=== PATIENT | male | born 1945 | race Caucasian/White ===

== ENCOUNTER 2023-06-21 19:35 | Inpatient (IN) | payer OTHER, MEDICARE, SELFPAY ==
[2023-06-21 21:47] VITALS: BMI 24.0
[2023-06-21 23:26] VITALS: BP 141/70; PULSE 101; RESP 17; TEMP 36.3; O2SAT 99
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
[2023-06-22 06:00] VITALS: BP 99/68; PULSE 95; RESP 18; TEMP 36.6; O2SAT 97
[2023-06-22 07:00] VITALS: BMI 24.3
[2023-06-22] MEDS: Atorvastatin Calcium 40 MG TABLET PO (08:50)
[2023-06-22] MEDS: Lidocaine 4 % Patch ADH..PATCH 1 PATCH TRANSDERMA (08:50)
[2023-06-22] MEDS: Apixaban 5 MG TABLET PO (08:50)
[2023-06-22] MEDS: amLODIPine Besylate 5 MG TABLET PO (08:50)
[2023-06-22] MEDS: lisinopriL 5 MG TABLET PO (08:51)
[2023-06-22] MEDS: Metoprolol Succinate ER 50 MG TAB.ER.24H PO (08:51)
[2023-06-22 08:52] LABS: Estimated Average Glucose 108 mg/dL; Hemoglobin A1c % 5.4 % (<6.0)
[2023-06-22 09:00] LABS: Alanine Aminotransferase 54 U/L (0-40); Albumin Level 3.8 g/dL (3.5-5.0); Alkaline Phosphatase 49 U/L (39-117); Anion Gap 15 (12-20); Aspartate Amino Transferase 69 U/L (5-37); Bilirubin Total 2.3 mg/dL (0.0-1.0); Blood Urea Nitrogen 21 mg/dL (9-16); Calcium 10.1 mg/dL (8.4-10.2); Carbon Dioxide 25 mmol/L (22-29); Chloride 105 mmol/L (96-108); Cholesterol 114 mg/dL (<200); Creatinine Clr Calc Pharmacy 70.1; Estimated Glomerular Filt Rate > 60; Glucose Fasting 92 mg/dL (60-99); HDL Cholesterol 36 mg/dL (>40); LDL Cholesterol Calculated 60 mg/dL (<100); Potassium 3.8 mmol/L (3.3-5.1); Sodium 141 mmol/L (135-145); Total Protein 6.7 g/dL (6.5-8.0); Triglycerides 94 mg/dL (<150)
[2023-06-22 09:05] LABS: TSH reflex Free T4 1.32 uIU/mL (0.32-4.0)
[2023-06-22 09:18] LABS: Folate 12.5 ng/mL (> or = 4.0); Vitamin B12 526 pg/mL (200-900)
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
[2023-06-22 18:00] VITALS: BP 124/59; PULSE 76; TEMP 35.8; O2SAT 96
[2023-06-23 07:45] VITALS: BP 125/67; PULSE 83; RESP 18; TEMP 36.6; O2SAT 97
[2023-06-23] MEDS: amLODIPine Besylate 5 MG TABLET PO (08:20)
[2023-06-23] MEDS: Apixaban 5 MG TABLET PO (08:21)
[2023-06-23] MEDS: lisinopriL 5 MG TABLET PO (08:21)
[2023-06-23] MEDS: Atorvastatin Calcium 40 MG TABLET PO (08:21)
[2023-06-23] MEDS: Metoprolol Succinate ER 50 MG TAB.ER.24H PO (08:29)
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
--- NOTE | 2023-06-23 16:59 | PC.NURSE ---
Sandro has a large abrasion on middle back with smaller open areas producing clear, thin liquid. No odor. Area looks pink, clean, no s/s of infection noted. Dr Earl notified, came in and assessed the abrasion. ordered Telfa dressing to open areas.
[2023-06-23 18:00] VITALS: BP 118/75; PULSE 82; TEMP 36.3; O2SAT 97
[2023-06-24 09:07] VITALS: BP 129/60; PULSE 94; RESP 18; TEMP 36.2; O2SAT 98
[2023-06-24] MEDS: Atorvastatin Calcium 40 MG TABLET PO (09:10)
[2023-06-24] MEDS: lisinopriL 5 MG TABLET PO (09:10)
[2023-06-24] MEDS: Apixaban 5 MG TABLET PO ×2 (09:10→20:21)
[2023-06-24] MEDS: amLODIPine Besylate 5 MG TABLET PO (09:11)
[2023-06-24] MEDS: Metoprolol Succinate ER 50 MG TAB.ER.24H PO (09:11)
--- NOTE | 2023-06-24 14:27 | PC.NURSE ---
Patient had a shower today. The Telfa dressing were removed from his back. Area washed with soap and water and dried. The abrasion is healing with pink and red granulated wound bed with moderate amount of non-odorous yellow drainage on the old dressing. There is also a large old fading bruised area right mid back and flank area. Patient denies pain and tolerated procedure well.
--- NOTE | 2023-06-24 16:45 | HO.PSYCHPN ---
Subjective Subjective Date of Service: 06/24/23 Reason For Visit: F43.10 Post traumatic STress Disorder Interim History: Met with patient; discussed with team Patient reports that he is good and has brighter affect and seems more present during conversation. Patient said he had a good meeting with his daughter today. Mortgage Loan Closer discussed police report that found patient with gun and hand, where no pants; patient says he does not remember this at all but today, accepts that this may have actually happen. Mortgage Loan Closer discussed and suggests that his concern about a smear campaign might just be his mind playing tricks on him which he said he would consider. Discussed medication that could have been problematic, Ambien and NyQuil a which patient says he is done taking. Sleeping well. Staff report patient has lesion on back is healing well. Mental Status Exam Mental Status Exam Narrative: Pt is alert and oriented to self, place; behavior is cooperative, friendly and calm; patient is not in distress; dressed in casual attire, adequate grooming and hygiene; mood is described as good and affect congruent; eye contact appropriate; Speech is normal rate, volume and prosody and not pressured; no psychomotor agitation/retardation present; thought process goal oriented and linear; note tangential moments; Thought content is on discharge; considering this past weeks incident; remains pertinent to discussion and answers are relevant; some residual paranoid/delusional thinking; denies any SI/HI. There is no evidence of perceptual disturbance; denies AVH Patients insight and judgment impaired but seems to be improving Diagnostics Vital Signs (24Hr): Vital Signs - 24 hr 06/23/23 18:00 06/24/23 09:07 Temperature 97.3 F 97.2 F Pulse Rate 82 94 Respiratory Rate 18 Blood Pressure 118/75 129/60 Pulse Oximetry 97 98 Oxygen Delivery Method Room Air Room Air BMI result Body Mass Index 24.3 Labs 06/22/23 07:56 Medications Medications Current Medications Acetaminophen (Acetaminophen 325 Mg Tablet) 650 mg PO Q6H PRN PRN Reason: Headache/Pain Mild Scale (1-3) Hydrocodone Bitart/Acetaminophen (Hydrocodone Bit/Acetam 5/325 Tablet) 1 tab PO Q6H PRN PRN Reason: Pain (Scale Score 7-10) Al Hydroxide/Mg Hydroxide (Magnesium Hydrox/Alum Hydrox 30 Ml Oral.Susp) 30 ml PO Q6H PRN PRN Reason: Heartburn/Nausea Amlodipine Besylate (Amlodipine Besylate 5 Mg Tablet) 5 mg PO DAILY [facility]; Protocol Last Admin: 06/24/23 09:11 Dose: 5 mg Apixaban (Apixaban 5 Mg Tablet) 5 mg PO BID [facility] Last Admin: 06/24/23 09:10 Dose: 5 mg Atorvastatin Calcium (Atorvastatin Calcium 40 Mg Tablet) 40 mg PO DAILY [facility] Last Admin: 06/24/23 09:10 Dose: 40 mg Lidocaine (Lidocaine 4 % Patch Adh..Patch) 1 patch TRANSDERMA DAILY [facility] Last Admin: 06/24/23 09:10 Dose: Not Given Lisinopril (Lisinopril 5 Mg Tablet) 5 mg PO DAILY [facility]; Protocol Last Admin: 06/24/23 09:10 Dose: 5 mg Magnesium Hydroxide (Milk Of Magnesia 30 Ml Oral.Susp) 30 ml PO DAILY PRN PRN Reason: Constipation Metoprolol Succinate (Metoprolol Succinate Er 50 Mg Tab.Er.24h) 50 mg PO DAILY [facility]; Protocol Last Admin: 06/24/23 09:11 Dose: 50 mg Trazodone HCl (Trazodone Hcl 50 Mg Tablet) 50 mg PO BEDTIME MRX1 PRN PRN Reason: Insomnia Allergies Allergies Allergy/AdvReac Type Severity Reaction Status Date / Time No Known Allergies Allergy Verified 06/21/23 23:40 Assessment & Plan Assessment & Plan (1) Delirium: Status: Acute Code(s): R41.0 - Disorientation, unspecified (2) PTSD (post-traumatic stress disorder): Status: Acute Code(s): F43.10 - Post-traumatic stress disorder, unspecified (3) Atrial fibrillation: Status: Acute Code(s): I48.91 - Unspecified atrial fibrillation (4) Hypertension: Status: Acute Code(s): I10 - Essential (primary) hypertension Plan Pt is a 78 yo male, [place] with hx of PTSD, ?Afib on Eliquis, HTN, who presents for new onset dysregulated, confused behavior and paranoid delusions. Impression/Plan -per daughters, they have noticed some mild memory issues coming up, however they both say patient has until now been able to fully take care of himself on his own without issue.? Both daughters find this past weekends incident to be startling, and completely out of the ordinary. -patient has been taking Ambien up to 15 mg at night, plus NyQuil plus hydrocodone; at this point it seems possible that patient's PTSD was exacerbated due to mind altering medication and that he is experiencing some delirium from this medication combination.? At this point it is not clear if there is an underlying cognitive decline, or if so to what degree.? Patient has no recollection of a number of events, including being found with his gun outside not wearing pants.? Patient is also expressing paranoid delusional thinking. -admitted for patient's safety, monitoring and assessing whether recent incident due to delirium or whether an organic cognitive impairment is emerging Hospital course: 06/23 no change in presentation; scrape on patient's back which he says was due to accidentally sliding up against a board; examined and no signs of infection -would consider prazosin q.h.s. if patient complains of nightmares or trouble sleeping 06/24 Patient reports that he is good and has brighter affect and seems more present during conversation. Patient said he had a good meeting with his daughter today. Mortgage Loan Closer discussed police report that found patient with gun and hand, where no pants; patient says he does not remember this at all but today, accepts that this may have actually happen. Mortgage Loan Closer discussed and suggests that his concern about a smear campaign might just be his mind playing tricks on him which he said he would consider. Discussed medication that could have been problematic, Ambien and NyQuil a which patient says he is done taking. Sleeping well. Eating well. Will continue to monitor for continued progress Staff report patient has lesion on back is healing well. PLAN: CV Q 15 minute checks Discontinue Ambien Will avoid anticholinergic medications MOCA/ACL for cognitive screening Will give some time to see if there is further cognitive clearing before considering medications Reviewed labs from sending hospital and mild LFT increase likely due to over using NyQuil Reviewed labs from [facility] other AST elevation, lytes, BUN/creatinine, CBC. Ca all WNL; UDS negative; UA negative Persistent AFib Continue metoprolol, Eliquis HTN Continue amlodipine, lisinopril HLD Continue statin Patient educated on: diagnosis and medication risk/benefits Informed Consent: understands Reason for continued inpatient stay Substantial Risk for: rapid decompensation Time Spent With Patient Time: Total time managing care of this patient today ____ minutes.
[2023-06-24 18:00] VITALS: BP 99/75; PULSE 70; RESP 17; TEMP 35.8; O2SAT 99
[2023-06-25 08:45] VITALS: BP 125/84; PULSE 92; RESP 20; TEMP 36.1; O2SAT 98
[2023-06-25] MEDS: lisinopriL 5 MG TABLET PO (08:46)
[2023-06-25] MEDS: Atorvastatin Calcium 40 MG TABLET PO (08:46)
[2023-06-25] MEDS: amLODIPine Besylate 5 MG TABLET PO (08:47)
[2023-06-25] MEDS: Metoprolol Succinate ER 50 MG TAB.ER.24H PO (08:47)
[2023-06-25] MEDS: Apixaban 5 MG TABLET PO ×2 (08:47→20:34)
--- NOTE | 2023-06-25 10:17 | HO.PSYCHPN ---
Subjective Subjective Date of Service: 06/25/23 Reason For Visit: F43.10 Post traumatic STress Disorder Subjective Notes: 3 Day Interim History: Met with patient; discussed with team Patient says that he is good. Reviewed again incident this past weekend patient again says he does not remember having done those things but accepts that it may have happened. He reiterates that he gave his guns to the service or work dispatcher chief which is true. Still hesitant to discard concerned that perhaps his friend was doing some smear campaign. Patient discussed about discharge. Prize Fighter courage him to place a 3 day notice which he did. Patient asked about blood thinning medication and film writer discussed that he has AFib and that this is recommended to take to avoid blood clots, stroke. Patient said he will continue taking it Mental Status Exam Mental Status Exam Narrative: Pt is alert and oriented to self, place; behavior is cooperative, friendly and calm; patient is not in distress; dressed in casual attire, adequate grooming and hygiene; mood is described as good and affect congruent; eye contact appropriate; Speech is normal rate, volume and prosody and not pressured; no psychomotor agitation/retardation present; thought process goal oriented and linear; no tangential moments; Thought content is on discharge; considering this past weeks incident and discharge; remains pertinent to discussion and answers are relevant; some residual paranoid/delusional thinking; denies any SI/HI. There is no evidence of perceptual disturbance; denies AVH Patients insight and judgment impaired but seems to be improving Diagnostics Vital Signs (24Hr): Vital Signs - 24 hr 06/24/23 18:00 Temperature 96.4 F L Pulse Rate 70 Respiratory Rate 17 Blood Pressure 99/75 Pulse Oximetry 99 Oxygen Delivery Method Room Air BMI result Body Mass Index 24.3 Labs 06/22/23 07:56 Medications Medications Current Medications Acetaminophen (Acetaminophen 325 Mg Tablet) 650 mg PO Q6H PRN PRN Reason: Headache/Pain Mild Scale (1-3) Hydrocodone Bitart/Acetaminophen (Hydrocodone Bit/Acetam 5/325 Tablet) 1 tab PO Q6H PRN PRN Reason: Pain (Scale Score 7-10) Al Hydroxide/Mg Hydroxide (Magnesium Hydrox/Alum Hydrox 30 Ml Oral.Susp) 30 ml PO Q6H PRN PRN Reason: Heartburn/Nausea Amlodipine Besylate (Amlodipine Besylate 5 Mg Tablet) 5 mg PO DAILY [facility]; Protocol Last Admin: 06/25/23 08:47 Dose: 5 mg Apixaban (Apixaban 5 Mg Tablet) 5 mg PO BID [facility] Last Admin: 06/25/23 08:47 Dose: 5 mg Atorvastatin Calcium (Atorvastatin Calcium 40 Mg Tablet) 40 mg PO DAILY [facility] Last Admin: 06/25/23 08:46 Dose: 40 mg Lidocaine (Lidocaine 4 % Patch Adh..Patch) 1 patch TRANSDERMA DAILY [facility] Last Admin: 06/25/23 08:48 Dose: Not Given Lisinopril (Lisinopril 5 Mg Tablet) 5 mg PO DAILY [facility]; Protocol Last Admin: 06/25/23 08:46 Dose: 5 mg Magnesium Hydroxide (Milk Of Magnesia 30 Ml Oral.Susp) 30 ml PO DAILY PRN PRN Reason: Constipation Metoprolol Succinate (Metoprolol Succinate Er 50 Mg Tab.Er.24h) 50 mg PO DAILY [facility]; Protocol Last Admin: 06/25/23 08:47 Dose: 50 mg Trazodone HCl (Trazodone Hcl 50 Mg Tablet) 50 mg PO BEDTIME MRX1 PRN PRN Reason: Insomnia Allergies Allergies Allergy/AdvReac Type Severity Reaction Status Date / Time No Known Allergies Allergy Verified 06/21/23 23:40 Assessment & Plan Assessment & Plan (1) Delirium: Status: Acute Code(s): R41.0 - Disorientation, unspecified (2) PTSD (post-traumatic stress disorder): Status: Acute Code(s): F43.10 - Post-traumatic stress disorder, unspecified (3) Atrial fibrillation: Status: Acute Code(s): I48.91 - Unspecified atrial fibrillation (4) Hypertension: Status: Acute Code(s): I10 - Essential (primary) hypertension Plan Pt is a 78 yo male, [place] with hx of PTSD, ?Afib on Eliquis, HTN, who presents for new onset dysregulated, confused behavior and paranoid delusions. Impression/Plan -per daughters, they have noticed some mild memory issues coming up, however they both say patient has until now been able to fully take care of himself on his own without issue.? Both daughters find this past weekends incident to be startling, and completely out of the ordinary. -patient has been taking Ambien up to 15 mg at night, plus NyQuil plus hydrocodone; at this point it seems possible that patient's PTSD was exacerbated due to mind altering medication and that he is experiencing some delirium from this medication combination.? At this point it is not clear if there is an underlying cognitive decline, or if so to what degree.? Patient has no recollection of a number of events, including being found with his gun outside not wearing pants.? Patient is also expressing paranoid delusional thinking. -admitted for patient's safety, monitoring and assessing whether recent incident due to delirium or whether an organic cognitive impairment is emerging Hospital course: 06/23 no change in presentation; scrape on patient's back which he says was due to accidentally sliding up against a board; examined and no signs of infection -would consider prazosin q.h.s. if patient complains of nightmares or trouble sleeping 06/24 Patient reports that he is good and has brighter affect and seems more present during conversation. Patient said he had a good meeting with his daughter today. Prize Fighter discussed police report that found patient with gun and hand, where no pants; patient says he does not remember this at all but today, accepts that this may have actually happen. Prize Fighter discussed and suggests that his concern about a smear campaign might just be his mind playing tricks on him which he said he would consider. Discussed medication that could have been problematic, Ambien and NyQuil a which patient says he is done taking. Sleeping well. Eating well. Will continue to monitor for continued progress Staff report patient has lesion on back is healing well. 06/25 patient much more clear and organized. Seems to be accepting that though he does not remember what happened this past weekend, police and corroborating reports are accurate. Some residual paranoid thinking but not expressed an less solicited. Patient's thought process is goal oriented and linear and no tangential moments. Will continue to monitor but it is hopeful that last week's event was due to delirium caused by mind altering medications (Ambien, NyQuil and hydrocodone) which now seems to be resolving. Daughter thinks patient can go home soon PLAN: 3 day Q 15 minute checks Discontinue Ambien (was intermittently taking up to 15 mg at home) Will avoid anticholinergic medications MOCA/ACL for cognitive screening Will give some time to see if there is further cognitive clearing before considering medications Reviewed labs from sending hospital and mild LFT increase likely due to over using NyQuil Reviewed labs from [facility] hospital other AST elevation, lytes, BUN/creatinine, CBC. Ca all WNL; UDS negative; UA negative Persistent AFib Continue metoprolol, Eliquis HTN Continue amlodipine, lisinopril HLD Continue statin Patient educated on: diagnosis, medication risk/benefits and medical condition Informed Consent: understands and further education needed Reason for continued inpatient stay Substantial Risk for: med/psych decompensation Time Spent With Patient Time: Total time managing care of this patient today ____ minutes.
--- NOTE | 2023-06-25 15:52 | PC.NURSE ---
Submitted 3 day notice; Dr Earl aware. Message left on philip treatment/direct care team [employer] system.
[2023-06-25 18:00] VITALS: BP 92/62; PULSE 72; RESP 16; TEMP 36.6; O2SAT 99
[2023-06-26 08:40] VITALS: BP 104/61; PULSE 85; RESP 20; TEMP 36.6; O2SAT 98
[2023-06-26] MEDS: amLODIPine Besylate 5 MG TABLET PO (08:44)
[2023-06-26] MEDS: Metoprolol Succinate ER 50 MG TAB.ER.24H PO (08:45)
[2023-06-26] MEDS: Apixaban 5 MG TABLET PO ×2 (08:45→20:01)
[2023-06-26] MEDS: Atorvastatin Calcium 40 MG TABLET PO (08:45)
[2023-06-26] MEDS: lisinopriL 5 MG TABLET PO (08:45)
--- NOTE | 2023-06-26 10:34 | HO.PSYCHPN ---
Subjective Subjective Date of Service: 06/26/23 Reason For Visit: F43.10 Post traumatic STress Disorder Interim History: Met with Patient; discussed with team no change in presentation. agrees to remain for family meeting this week w/ daughter scored 18/30 on MOCA ACL ~4 Mental Status Exam Mental Status Exam Narrative: Pt is alert and oriented to self, place; behavior is cooperative, friendly and calm; patient is not in distress; dressed in casual attire, adequate grooming and hygiene; mood is described as good and affect congruent; eye contact appropriate; Speech is normal rate, volume and prosody and not pressured; no psychomotor agitation/retardation present; thought process goal oriented and linear; no tangential moments; Thought content is on discharge; considering this past weeks incident and discharge; remains pertinent to discussion and answers are relevant; some residual paranoid/delusional thinking; denies any SI/HI. There is no evidence of perceptual disturbance; denies AVH Patients insight and judgment impaired but significantly improved Diagnostics Vital Signs (24Hr): Vital Signs - 24 hr 06/25/23 18:00 06/26/23 08:40 Temperature 97.8 F 97.9 F Pulse Rate 72 85 Respiratory Rate 16 20 Blood Pressure 92/62 104/61 Pulse Oximetry 99 98 Oxygen Delivery Method Room Air Room Air BMI result Body Mass Index 24.3 Labs 06/22/23 07:56 Medications Medications Current Medications Acetaminophen (Acetaminophen 325 Mg Tablet) 650 mg PO Q6H PRN PRN Reason: Headache/Pain Mild Scale (1-3) Hydrocodone Bitart/Acetaminophen (Hydrocodone Bit/Acetam 5/325 Tablet) 1 tab PO Q6H PRN PRN Reason: Pain (Scale Score 7-10) Al Hydroxide/Mg Hydroxide (Magnesium Hydrox/Alum Hydrox 30 Ml Oral.Susp) 30 ml PO Q6H PRN PRN Reason: Heartburn/Nausea Amlodipine Besylate (Amlodipine Besylate 5 Mg Tablet) 5 mg PO DAILY [facility]; Protocol Last Admin: 06/26/23 08:44 Dose: 5 mg Apixaban (Apixaban 5 Mg Tablet) 5 mg PO BID [facility] Last Admin: 06/26/23 08:45 Dose: 5 mg Atorvastatin Calcium (Atorvastatin Calcium 40 Mg Tablet) 40 mg PO DAILY [facility] Last Admin: 06/26/23 08:45 Dose: 40 mg Lidocaine (Lidocaine 4 % Patch Adh..Patch) 1 patch TRANSDERMA DAILY [facility] Last Admin: 06/26/23 08:44 Dose: Not Given Lisinopril (Lisinopril 5 Mg Tablet) 5 mg PO DAILY [facility]; Protocol Last Admin: 06/26/23 08:45 Dose: 5 mg Magnesium Hydroxide (Milk Of Magnesia 30 Ml Oral.Susp) 30 ml PO DAILY PRN PRN Reason: Constipation Metoprolol Succinate (Metoprolol Succinate Er 50 Mg Tab.Er.24h) 50 mg PO DAILY [facility]; Protocol Last Admin: 06/26/23 08:45 Dose: 50 mg Trazodone HCl (Trazodone Hcl 50 Mg Tablet) 50 mg PO BEDTIME MRX1 PRN PRN Reason: Insomnia Allergies Allergies Allergy/AdvReac Type Severity Reaction Status Date / Time No Known Allergies Allergy Verified 06/21/23 23:40 Assessment & Plan Assessment & Plan (1) Delirium: Status: Resolved Code(s): R41.0 - Disorientation, unspecified Assessment and Plan: resolved (2) PTSD (post-traumatic stress disorder): Status: Acute Code(s): F43.10 - Post-traumatic stress disorder, unspecified (3) Atrial fibrillation: Status: Acute Code(s): I48.91 - Unspecified atrial fibrillation (4) Hypertension: Status: Acute Code(s): I10 - Essential (primary) hypertension Plan Pt is a 78 yo male, [place] with hx of PTSD, ?Afib on Eliquis, HTN, who presents for new onset dysregulated, confused behavior and paranoid delusions. Impression/Plan -per daughters, they have noticed some mild memory issues coming up, however they both say patient has until now been able to fully take care of himself on his own without issue.? Both daughters find this past weekends incident to be startling, and completely out of the ordinary. -patient has been taking Ambien up to 15 mg at night, plus NyQuil plus hydrocodone; at this point it seems possible that patient's PTSD was exacerbated due to mind altering medication and that he is experiencing some delirium from this medication combination.? At this point it is not clear if there is an underlying cognitive decline, or if so to what degree.? Patient has no recollection of a number of events, including being found with his gun outside not wearing pants.? Patient is also expressing paranoid delusional thinking. -admitted for patient's safety, monitoring and assessing whether recent incident due to delirium or whether an organic cognitive impairment is emerging Hospital course: 06/23 no change in presentation; scrape on patient's back which he says was due to accidentally sliding up against a board; examined and no signs of infection -would consider prazosin q.h.s. if patient complains of nightmares or trouble sleeping 06/24 Patient reports that he is good and has brighter affect and seems more present during conversation. Patient said he had a good meeting with his daughter today. Trout Farmer discussed police report that found patient with gun and hand, where no pants; patient says he does not remember this at all but today, accepts that this may have actually happen. Trout Farmer discussed and suggests that his concern about a smear campaign might just be his mind playing tricks on him which he said he would consider. Discussed medication that could have been problematic, Ambien and NyQuil a which patient says he is done taking. Sleeping well. Eating well. Will continue to monitor for continued progress Staff report patient has lesion on back is healing well. 06/25 patient much more clear and organized. Seems to be accepting that though he does not remember what happened this past weekend, police and corroborating reports are accurate. Some residual paranoid thinking but not expressed an less solicited. Patient's thought process is goal oriented and linear and no tangential moments. Will continue to monitor but it is hopeful that last week's event was due to delirium caused by mind altering medications (Ambien, NyQuil and hydrocodone) which now seems to be resolving. Daughter thinks patient can go home soon 06/26 pt remains doing better; delirium seems to have resolved and pt is much clearer and more organized. However, now cleared, a baseline level of dementia seems to have emerged. -primary team to discuss med management going forward PLAN: 3 day Q 15 minute checks Discontinue Ambien (was intermittently taking up to 15 mg at home) Will avoid anticholinergic medications MOCA/ACL for cognitive screening Reviewed labs from sending hospital and mild LFT increase likely due to over using NyQuil Reviewed labs from setting hospital other AST elevation, lytes, BUN/creatinine, CBC. Ca all WNL; UDS negative; UA negative Persistent AFib Continue metoprolol, Eliquis HTN Continue amlodipine, lisinopril HLD Continue statin Patient educated on: diagnosis and medication risk/benefits Informed Consent: understands and further education needed Reason for continued inpatient stay Substantial Risk for: med/psych decompensation Time Spent With Patient Time: Total time managing care of this patient today ____ minutes.
[2023-06-26] MEDS: Lidocaine 4 % Patch ADH..PATCH 1 PATCH TRANSDERMA (12:38)
[2023-06-26 18:00] VITALS: BP 104/64; PULSE 72; RESP 18; TEMP 36.5; O2SAT 97
[2023-06-27 08:10] VITALS: BP 131/61; PULSE 78; RESP 18; TEMP 36; O2SAT 99
[2023-06-27] MEDS: Atorvastatin Calcium 40 MG TABLET PO (08:31)
[2023-06-27] MEDS: amLODIPine Besylate 5 MG TABLET PO (08:32)
[2023-06-27] MEDS: Apixaban 5 MG TABLET PO ×2 (08:32→20:20)
[2023-06-27] MEDS: Metoprolol Succinate ER 50 MG TAB.ER.24H PO (08:32)
[2023-06-27] MEDS: lisinopriL 5 MG TABLET PO (08:33)
[2023-06-27] MEDS: Lidocaine 4 % Patch ADH..PATCH 1 PATCH TRANSDERMA (08:33)
--- NOTE | 2023-06-27 13:01 | PC.NURSE ---
Large abrasion mid back healing with dark pink granulated tissue in the wound bed. No drainage at this time. Old dry serous drainage on outer edge of wound bed. Left open to air. No signs or symptoms of complications.
--- NOTE | 2023-06-27 16:16 | P.PNPSI_ITS ---
Subjective Subjective Date of Service: 06/27/23 Reason For Visit: F43.10 Post traumatic STress Disorder Subjective Notes: Conditional Voluntary Interim History: The nursing staff reported the patient had been compliant with treatment. Apparently he was delirious with a combination of Ambien, NyQuil and oxycodone. Also he was confused but currently he feels much better. The social work coordinator reported her daughter is involved and she is trying to do a family meeting for tomorrow 330. The occupational therapist did a [place] testing he scored 18/30 on his Chepe test is 4.2. On interview the patient denies new symptoms he states that he feels much better and the staff had noticed that he is less paranoid, apparently he has delirium has resolved. Mental Status Exam Mental Status Exam Patient Appearance: Well Grooomed and Appropriate Patient Orientation: Person and Situation Level of Consciousness: Awake and Appropriate Patient Behavior: Guarded and Passive Mood Description: Withdrawn Affect Description: Constricted Patient Cognition Impaired: Yes Ability to Follow Directions: Good Speech Pattern: Clear Hallucinations: None Delusions: Not Present Thought Process: Distracted and Linear Thought Content: positive for [place] and positive for Poverty of Content Judgement: Fair Diagnostics Vital Signs (24Hr): Vital Signs - 24 hr 06/26/23 18:00 06/27/23 08:10 Temperature 97.7 F 96.8 F Pulse Rate 72 78 Respiratory Rate 18 18 Blood Pressure 104/64 131/61 Pulse Oximetry 97 99 Oxygen Delivery Method Room Air Room Air BMI result Body Mass Index 24.3 Labs 06/22/23 07:56 Medications Medications Current Medications Acetaminophen (Acetaminophen 325 Mg Tablet) 650 mg PO Q6H PRN PRN Reason: Headache/Pain Mild Scale (1-3) Al Hydroxide/Mg Hydroxide (Magnesium Hydrox/Alum Hydrox 30 Ml Oral.Susp) 30 ml PO Q6H PRN PRN Reason: Heartburn/Nausea Amlodipine Besylate (Amlodipine Besylate 5 Mg Tablet) 5 mg PO DAILY [facility]; Protocol Last Admin: 06/27/23 08:32 Dose: 5 mg Apixaban (Apixaban 5 Mg Tablet) 5 mg PO BID [facility] Last Admin: 06/27/23 08:32 Dose: 5 mg Atorvastatin Calcium (Atorvastatin Calcium 40 Mg Tablet) 40 mg PO DAILY [facility] Last Admin: 06/27/23 08:31 Dose: 40 mg Lidocaine (Lidocaine 4 % Patch Adh..Patch) 1 patch TRANSDERMA DAILY [facility] Last Admin: 06/27/23 08:33 Dose: 1 patch Lisinopril (Lisinopril 5 Mg Tablet) 5 mg PO DAILY [facility]; Protocol Last Admin: 06/27/23 08:33 Dose: 5 mg Magnesium Hydroxide (Milk Of Magnesia 30 Ml Oral.Susp) 30 ml PO DAILY PRN PRN Reason: Constipation Metoprolol Succinate (Metoprolol Succinate Er 50 Mg Tab.Er.24h) 50 mg PO DAILY [facility]; Protocol Last Admin: 06/27/23 08:32 Dose: 50 mg Trazodone HCl (Trazodone Hcl 50 Mg Tablet) 50 mg PO BEDTIME MRX1 PRN PRN Reason: Insomnia Allergies Allergies Allergy/AdvReac Type Severity Reaction Status Date / Time No Known Allergies Allergy Verified 06/21/23 23:40 Assessment & Plan Assessment & Plan (1) Delirium: Status: Resolved Code(s): R41.0 - Disorientation, unspecified Assessment and Plan: resolved (2) PTSD (post-traumatic stress disorder): Status: Acute Code(s): F43.10 - Post-traumatic stress disorder, unspecified (3) Atrial fibrillation: Status: Acute Code(s): I48.91 - Unspecified atrial fibrillation (4) Hypertension: Status: Acute Code(s): I10 - Essential (primary) hypertension Plan Pt is a 78 yo male, [place] with hx of PTSD, ?Afib on Eliquis, HTN, who presents for new onset dysregulated, confused behavior and paranoid delusions. Impression/Plan -per daughters, they have noticed some mild memory issues coming up, however they both say patient has until now been able to fully take care of himself on his own without issue.? Both daughters find this past weekends incident to be startling, and completely out of the ordinary. -patient has been taking Ambien up to 15 mg at night, plus NyQuil plus hydrocodone; at this point it seems possible that patient's PTSD was exacerbated due to mind altering medication and that he is experiencing some delirium from this medication combination.? At this point it is not clear if there is an underlying cognitive decline, or if so to what degree.? Patient has no recollection of a number of events, including being found with his gun outside not wearing pants.? Patient is also expressing paranoid delusional thinking. -admitted for patient's safety, monitoring and assessing whether recent incident due to delirium or whether an organic cognitive impairment is emerging Hospital course: 06/23 no change in presentation; scrape on patient's back which he says was due to accidentally sliding up against a board; examined and no signs of infection -would consider prazosin q.h.s. if patient complains of nightmares or trouble sleeping 06/24 Patient reports that he is good and has brighter affect and seems more present during conversation. Patient said he had a good meeting with his daughter today. Biodiesel Plant Superintendent discussed police report that found patient with gun and hand, where no pants; patient says he does not remember this at all but today, accepts that this may have actually happen. Biodiesel Plant Superintendent discussed and suggests that his concern about a smear campaign might just be his mind playing tricks on him which he said he would consider. Discussed medication that could have been problematic, Ambien and NyQuil a which patient says he is done taking. Sleeping well. Eating well. Will continue to monitor for continued progress Staff report patient has lesion on back is healing well. 06/25 patient much more clear and organized. Seems to be accepting that though he does not remember what happened this past weekend, police and corroborating reports are accurate. Some residual paranoid thinking but not expressed an less solicited. Patient's thought process is goal oriented and linear and no tangential moments. Will continue to monitor but it is hopeful that last week's event was due to delirium caused by mind altering medications (Ambien, NyQuil and hydrocodone) which now seems to be resolving. Daughter thinks patient can go home soon 06/26 pt remains doing better; delirium seems to have resolved and pt is much clearer and more organized. However, now cleared, a baseline level of dementia seems to have emerged. -primary team to discuss med management going forward PLAN: 3 day Q 15 minute checks Discontinue Ambien (was intermittently taking up to 15 mg at home) Will avoid anticholinergic medications MOCA/ACL for cognitive screening Reviewed labs from sending hospital and mild LFT increase likely due to over using NyQuil Reviewed labs from setting hospital other AST elevation, lytes, BUN/creatinine, CBC. Ca all WNL; UDS negative; UA negative Persistent AFib Continue metoprolol, Eliquis HTN Continue amlodipine, lisinopril HLD Continue statin Reason for continued inpatient stay Substantial Risk for: inability to function, rapid decompensation and med/psych decompensation Time Spent With Patient Time: Total time managing care of this patient today __20__ minutes.
[2023-06-27 18:00] VITALS: BP 105/63; PULSE 83; RESP 16; TEMP 36.2; O2SAT 99
[2023-06-28 08:40] VITALS: BP 113/68; PULSE 83; RESP 20; TEMP 36.6; O2SAT 99
[2023-06-28] MEDS: lisinopriL 5 MG TABLET PO (08:44)
[2023-06-28] MEDS: Apixaban 5 MG TABLET PO ×2 (08:44→20:10)
[2023-06-28] MEDS: amLODIPine Besylate 5 MG TABLET PO (08:44)
[2023-06-28] MEDS: Atorvastatin Calcium 40 MG TABLET PO (08:44)
[2023-06-28] MEDS: Metoprolol Succinate ER 50 MG TAB.ER.24H PO (08:45)
--- NOTE | 2023-06-28 11:33 | P.PNPSI_ITS ---
Subjective Subjective Date of Service: 06/28/23 Reason For Visit: F43.10 Post traumatic STress Disorder Subjective Notes: Conditional Voluntary Interim History: The nursing staff reported the patient had been alert oriented times tree, socializing pleasant on approach. He denies depression or anxiety he slept well. It is clear that his delirium has been resolved. He retracted his 3 day notice. The social media content manager reported will have a family meeting today at 15:00. [facility]. The occupational therapy reported he scored 18/30 and 4.2 on the Chepe test. On interview, the patient denies new symptoms he feels fine. We discussed the new diagnosis of dementia and he agreed to take Aricept 5 mg p.o. q.h.s. to delay the progression of the disease. Mental Status Exam Mental Status Exam Patient Appearance: Well Grooomed and Appropriate Patient Orientation: Person and Situation Level of Consciousness: Awake Patient Behavior: Cooperative Mood Description: Calm Affect Description: Constricted Patient Cognition Impaired: Yes Ability to Follow Directions: Good Speech Pattern: Clear Hallucinations: None Delusions: Not Present Thought Process: Linear Judgement: Fair Diagnostics Vital Signs (24Hr): Vital Signs - 24 hr 06/27/23 18:00 06/28/23 08:40 Temperature 97.2 F Pulse Rate 83 83 Respiratory Rate 16 20 Blood Pressure 105/63 113/68 Pulse Oximetry 99 99 Oxygen Delivery Method Room Air Room Air BMI result Body Mass Index 24.3 Labs 06/22/23 07:56 Medications Medications Current Medications Acetaminophen (Acetaminophen 325 Mg Tablet) 650 mg PO Q6H PRN PRN Reason: Headache/Pain Mild Scale (1-3) Al Hydroxide/Mg Hydroxide (Magnesium Hydrox/Alum Hydrox 30 Ml Oral.Susp) 30 ml PO Q6H PRN PRN Reason: Heartburn/Nausea Amlodipine Besylate (Amlodipine Besylate 5 Mg Tablet) 5 mg PO DAILY [facility]; Protocol Last Admin: 06/28/23 08:44 Dose: 5 mg Apixaban (Apixaban 5 Mg Tablet) 5 mg PO BID [facility] Last Admin: 06/28/23 08:44 Dose: 5 mg Atorvastatin Calcium (Atorvastatin Calcium 40 Mg Tablet) 40 mg PO DAILY [facility] Last Admin: 06/28/23 08:44 Dose: 40 mg Donepezil HCl (Donepezil Hcl 5 Mg Tablet) 5 mg PO BEDTIME [facility] Lidocaine (Lidocaine 4 % Patch Adh..Patch) 1 patch TRANSDERMA DAILY [facility] Last Admin: 06/27/23 08:33 Dose: 1 patch Lisinopril (Lisinopril 5 Mg Tablet) 5 mg PO DAILY [facility]; Protocol Last Admin: 06/28/23 08:44 Dose: 5 mg Magnesium Hydroxide (Milk Of Magnesia 30 Ml Oral.Susp) 30 ml PO DAILY PRN PRN Reason: Constipation Metoprolol Succinate (Metoprolol Succinate Er 50 Mg Tab.Er.24h) 50 mg PO DAILY [facility]; Protocol Last Admin: 06/28/23 08:45 Dose: 50 mg Trazodone HCl (Trazodone Hcl 50 Mg Tablet) 50 mg PO BEDTIME MRX1 PRN PRN Reason: Insomnia Allergies Allergies Allergy/AdvReac Type Severity Reaction Status Date / Time No Known Allergies Allergy Verified 06/21/23 23:40 Assessment & Plan Assessment & Plan (1) Delirium: Status: Resolved Code(s): R41.0 - Disorientation, unspecified Assessment and Plan: resolved (2) PTSD (post-traumatic stress disorder): Status: Acute Code(s): F43.10 - Post-traumatic stress disorder, unspecified (3) Atrial fibrillation: Status: Acute Code(s): I48.91 - Unspecified atrial fibrillation (4) Hypertension: Status: Acute Code(s): I10 - Essential (primary) hypertension (5) Dementia: Status: Acute Code(s): F03.90 - Unspecified dementia, unspecified severity, without behavioral disturbance, psychotic disturbance, mood disturbance, and anxiety Plan Pt is a 78 yo male, [place] with hx of PTSD, ?Afib on Eliquis, HTN, who presents for new onset dysregulated, confused behavior and paranoid delusions. Impression/Plan -per daughters, they have noticed some mild memory issues coming up, however they both say patient has until now been able to fully take care of himself on his own without issue.? Both daughters find this past weekends incident to be startling, and completely out of the ordinary. -patient has been taking Ambien up to 15 mg at night, plus NyQuil plus hydrocodone; at this point it seems possible that patient's PTSD was exacerbated due to mind altering medication and that he is experiencing some delirium from this medication combination.? At this point it is not clear if there is an underlying cognitive decline, or if so to what degree.? Patient has no recollection of a number of events, including being found with his gun outside not wearing pants.? Patient is also expressing paranoid delusional thinking. -admitted for patient's safety, monitoring and assessing whether recent incident due to delirium or whether an organic cognitive impairment is emerging Hospital course: 06/23 no change in presentation; scrape on patient's back which he says was due to accidentally sliding up against a board; examined and no signs of infection -would consider prazosin q.h.s. if patient complains of nightmares or trouble sleeping 06/24 Patient reports that he is good and has brighter affect and seems more present during conversation. Patient said he had a good meeting with his daughter today. Water/Wastewater Project Engineer discussed police report that found patient with gun and hand, where no pants; patient says he does not remember this at all but today, accepts that this may have actually happen. Water/Wastewater Project Engineer discussed and suggests that his concern about a smear campaign might just be his mind playing tricks on him which he said he would consider. Discussed medication that could have been problematic, Ambien and NyQuil a which patient says he is done taking. Sleeping well. Eating well. Will continue to monitor for continued progress Staff report patient has lesion on back is healing well. 06/25 patient much more clear and organized. Seems to be accepting that though he does not remember what happened this past weekend, police and corroborating reports are accurate. Some residual paranoid thinking but not expressed an less solicited. Patient's thought process is goal oriented and linear and no tangential moments. Will continue to monitor but it is hopeful that last week's event was due to delirium caused by mind altering medications (Ambien, NyQuil and hydrocodone) which now seems to be resolving. Daughter thinks patient can go home soon 06/26 pt remains doing better; delirium seems to have resolved and pt is much clearer and more organized. However, now cleared, a baseline level of dementia seems to have emerged. -primary team to discuss med management going forward PLAN: 3 day notice retracted. Q 15 minute checks Discontinue Ambien (was intermittently taking up to 15 mg at home) Will avoid anticholinergic medications MOCA/ACL for cognitive screening Reviewed labs from sending hospital and mild LFT increase likely due to over u sing NyQuil Reviewed labs from setting hospital other AST elevation, lytes, BUN/creatinine, CBC. Ca all WNL; UDS negative; UA negative Persistent AFib Continue metoprolol, Eliquis HTN Continue amlodipine, lisinopril HLD Continue statin DEMENTIA Started on Aricept 5 mg p.o. q.h.s. to delay the progress of the condition. Reason for continued inpatient stay Substantial Risk for: inability to function, rapid decompensation and med/psych decompensation Time Spent With Patient Time: Total time managing care of this patient today __20__ minutes.
[2023-06-28] MEDS: Lidocaine 4 % Patch ADH..PATCH 1 PATCH TRANSDERMA (13:14)
[2023-06-28 19:50] VITALS: BP 137/83; PULSE 94; RESP 18; TEMP 36.6; O2SAT 97
[2023-06-28] MEDS: Donepezil HCl 5 MG TABLET PO (20:10)
[2023-06-29 07:00] VITALS: BMI 24.5
[2023-06-29 08:12] VITALS: BP 121/58; PULSE 81; RESP 18; TEMP 36.3; O2SAT 98
[2023-06-29] MEDS: Apixaban 5 MG TABLET PO ×2 (08:17→20:34)
[2023-06-29] MEDS: lisinopriL 5 MG TABLET PO (08:17)
[2023-06-29] MEDS: Atorvastatin Calcium 40 MG TABLET PO (08:17)
[2023-06-29] MEDS: Metoprolol Succinate ER 50 MG TAB.ER.24H PO (08:17)
[2023-06-29] MEDS: amLODIPine Besylate 5 MG TABLET PO (08:17)
--- NOTE | 2023-06-29 16:27 | P.PNPSI_ITS ---
Subjective Subjective Date of Service: 06/29/23 Reason For Visit: F43.10 Post traumatic STress Disorder Subjective Notes: Conditional Voluntary Interim History: The nursing staff reported the patient had been confused at times but easily redirectable. He wants to go back to his home. He slept well last night he had been fully compliant with treatment. On interview the patient denies new symptoms pleasantly confused, easily redirectable I advised him to continue taking his treatment for prevention of worsening dementia. Mental Status Exam Mental Status Exam Patient Appearance: Well Grooomed and Appropriate Patient Orientation: Person and Situation Level of Consciousness: Awake and Appropriate Patient Behavior: Guarded and Passive Mood Description: Withdrawn Affect Description: Constricted Patient Cognition Impaired: Yes Ability to Follow Directions: Good Speech Pattern: Clear Hallucinations: None Delusions: Not Present Thought Process: Distracted and Slowed Thinking Thought Content: positive for [place] and positive for Poverty of Content Judgement: Fair Diagnostics Vital Signs (24Hr): Vital Signs - 24 hr 06/28/23 19:50 06/29/23 08:12 Temperature 97.8 F 97.3 F Pulse Rate 94 81 Respiratory Rate 18 18 Blood Pressure 137/83 121/58 L Pulse Oximetry 97 98 Oxygen Delivery Method Room Air Room Air BMI result Body Mass Index 24.5 Labs 06/22/23 07:56 Medications Medications Current Medications Acetaminophen (Acetaminophen 325 Mg Tablet) 650 mg PO Q6H PRN PRN Reason: Headache/Pain Mild Scale (1-3) Al Hydroxide/Mg Hydroxide (Magnesium Hydrox/Alum Hydrox 30 Ml Oral.Susp) 30 ml PO Q6H PRN PRN Reason: Heartburn/Nausea Amlodipine Besylate (Amlodipine Besylate 5 Mg Tablet) 5 mg PO DAILY [facility]; Protocol Last Admin: 06/29/23 08:17 Dose: 5 mg Apixaban (Apixaban 5 Mg Tablet) 5 mg PO BID [facility] Last Admin: 06/29/23 08:17 Dose: 5 mg Atorvastatin Calcium (Atorvastatin Calcium 40 Mg Tablet) 40 mg PO DAILY [facility] Last Admin: 06/29/23 08:17 Dose: 40 mg Donepezil HCl (Donepezil Hcl 5 Mg Tablet) 5 mg PO BEDTIME [facility] Last Admin: 06/28/23 20:10 Dose: 5 mg Lidocaine (Lidocaine 4 % Patch Adh..Patch) 1 patch TRANSDERMA DAILY [facility] Last Admin: 06/29/23 08:17 Dose: Not Given Lisinopril (Lisinopril 5 Mg Tablet) 5 mg PO DAILY [facility]; Protocol Last Admin: 06/29/23 08:17 Dose: 5 mg Magnesium Hydroxide (Milk Of Magnesia 30 Ml Oral.Susp) 30 ml PO DAILY PRN PRN Reason: Constipation Metoprolol Succinate (Metoprolol Succinate Er 50 Mg Tab.Er.24h) 50 mg PO DAILY [facility]; Protocol Last Admin: 06/29/23 08:17 Dose: 50 mg Trazodone HCl (Trazodone Hcl 50 Mg Tablet) 50 mg PO BEDTIME MRX1 PRN PRN Reason: Insomnia Allergies Allergies Allergy/AdvReac Type Severity Reaction Status Date / Time No Known Allergies Allergy Verified 06/21/23 23:40 Assessment & Plan Assessment & Plan (1) Delirium: Status: Resolved Code(s): R41.0 - Disorientation, unspecified Assessment and Plan: resolved (2) PTSD (post-traumatic stress disorder): Status: Acute Code(s): F43.10 - Post-traumatic stress disorder, unspecified (3) Atrial fibrillation: Status: Acute Code(s): I48.91 - Unspecified atrial fibrillation (4) Hypertension: Status: Acute Code(s): I10 - Essential (primary) hypertension (5) Dementia: Status: Acute Code(s): F03.90 - Unspecified dementia, unspecified severity, without behavioral disturbance, psychotic disturbance, mood disturbance, and anxiety Plan Pt is a 78 yo male, [place] with hx of PTSD, ?Afib on Eliquis, HTN, who presents for new onset dysregulated, confused behavior and paranoid delusions. Impression/Plan -per daughters, they have noticed some mild memory issues coming up, however they both say patient has until now been able to fully take care of himself on his own without issue.? Both daughters find this past weekends incident to be startling, and completely out of the ordinary. -patient has been taking Ambien up to 15 mg at night, plus NyQuil plus hydrocodone; at this point it seems possible that patient's PTSD was exacerbated due to mind altering medication and that he is experiencing some delirium from this medication combination.? At this point it is not clear if there is an underlying cognitive decline, or if so to what degree.? Patient has no recollection of a number of events, including being found with his gun outside not wearing pants.? Patient is also expressing paranoid delusional thinking. -admitted for patient's safety, monitoring and assessing whether recent incident due to delirium or whether an organic cognitive impairment is emerging Hospital course: 06/23 no change in presentation; scrape on patient's back which he says was due to accidentally sliding up against a board; examined and no signs of infection -would consider prazosin q.h.s. if patient complains of nightmares or trouble sleeping 06/24 Patient reports that he is good and has brighter affect and seems more present during conversation. Patient said he had a good meeting with his daughter today. Plane Tableman discussed police report that found patient with gun and hand, where no pants; patient says he does not remember this at all but today, accepts that this may have actually happen. Plane Tableman discussed and suggests that his concern about a smear campaign might just be his mind playing tricks on him which he said he would consider. Discussed medication that could have been problematic, Ambien and NyQuil a which patient says he is done taking. Sleeping well. Eating well. Will continue to monitor for continued progress Staff report patient has lesion on back is healing well. 06/25 patient much more clear and organized. Seems to be accepting that though he does not remember what happened this past weekend, police and corroborating reports are accurate. Some residual paranoid thinking but not expressed an less solicited. Patient's thought process is goal oriented and linear and no tangential moments. Will continue to monitor but it is hopeful that last week's event was due to delirium caused by mind altering medications (Ambien, NyQuil and hydrocodone) which now seems to be resolving. Daughter thinks patient can go home soon 06/26 pt remains doing better; delirium seems to have resolved and pt is much clearer and more organized. However, now cleared, a baseline level of dementia seems to have emerged. -primary team to discuss med management going forward PLAN: 3 day notice retracted. Q 15 minute checks Discontinue Ambien (was intermittently taking up to 15 mg at home) Will avoid anticholinergic medications MOCA/ACL for cognitive screening Reviewed labs from sending hospital and mild LFT increase likely due to over using NyQuil Reviewed labs from setting hospital other AST elevation, lytes, BUN/creatinine, CBC. Ca all WNL; UDS negative; UA negative Persistent AFib Continue metoprolol, Eliquis HTN Continue amlodipine, lisinopril HLD Continue statin DEMENTIA Started on Aricept 5 mg p.o. q.h.s. to delay the progress of the condition. Reason for continued inpatient stay Substantial Risk for: inability to function, rapid decompensation and med/psych decompensation Time Spent With Patient Time: Total time managing care of this patient today __20__ minutes.
[2023-06-29 18:00] VITALS: BP 116/55; PULSE 82; RESP 18; TEMP 36.7; O2SAT 98
[2023-06-29] MEDS: Donepezil HCl 5 MG TABLET PO (20:34)
[2023-06-30 06:00] VITALS: BP 93/62; PULSE 74; RESP 18; TEMP 35.5; O2SAT 98
[2023-06-30] MEDS: amLODIPine Besylate 5 MG TABLET PO (08:31)
[2023-06-30] MEDS: Atorvastatin Calcium 40 MG TABLET PO (08:32)
[2023-06-30] MEDS: lisinopriL 5 MG TABLET PO (08:32)
[2023-06-30] MEDS: Apixaban 5 MG TABLET PO ×2 (08:32→21:10)
[2023-06-30] MEDS: Metoprolol Succinate ER 50 MG TAB.ER.24H PO (08:32)
[2023-06-30] MEDS: Lidocaine 4 % Patch ADH..PATCH 1 PATCH TRANSDERMA (08:33)
--- NOTE | 2023-06-30 11:24 | P.PNPSI_ITS ---
Subjective Subjective Date of Service: 06/30/23 Reason For Visit: F43.10 Post traumatic STress Disorder Subjective Notes: Conditional Voluntary Interim History: The nursing staff reported the patient has good appetite, he slept well and he had been compliant with treatments. Of he denies new symptoms. The addiction social worker reported the most likely he could be discharged next Monday. On interview the patient denies new symptoms no side effects with the new medications. Mental Status Exam Mental Status Exam Patient Appearance: Well Grooomed and Appropriate Patient Orientation: Person and Situation Level of Consciousness: Awake and Appropriate Patient Behavior: Guarded and Passive Mood Description: Calm Affect Description: Constricted Patient Cognition Impaired: Yes Ability to Follow Directions: Good Speech Pattern: Clear Hallucinations: None Delusions: Not Present Thought Process: Distracted, Slowed Thinking and Word Salad Thought Content: positive for [place] and positive for Circumstantial Judgement: Fair Diagnostics Vital Signs (24Hr): Vital Signs - 24 hr 06/29/23 18:00 06/30/23 06:00 Temperature 98.0 F 96 F L Pulse Rate 82 74 Respiratory Rate 18 18 Blood Pressure 116/55 L 93/62 Pulse Oximetry 98 98 Oxygen Delivery Method Room Air Room Air BMI result Body Mass Index 24.5 Labs 06/22/23 07:56 Medications Medications Current Medications Acetaminophen (Acetaminophen 325 Mg Tablet) 650 mg PO Q6H PRN PRN Reason: Headache/Pain Mild Scale (1-3) Al Hydroxide/Mg Hydroxide (Magnesium Hydrox/Alum Hydrox 30 Ml Oral.Susp) 30 ml PO Q6H PRN PRN Reason: Heartburn/Nausea Amlodipine Besylate (Amlodipine Besylate 5 Mg Tablet) 5 mg PO DAILY ON LICENSE OF [facility]; Protocol Last Admin: 06/30/23 08:31 Dose: 5 mg Apixaban (Apixaban 5 Mg Tablet) 5 mg PO BID [facility] Last Admin: 06/30/23 08:32 Dose: 5 mg Atorvastatin Calcium (Atorvastatin Calcium 40 Mg Tablet) 40 mg PO DAILY ON LICENSE OF [facility] Last Admin: 06/30/23 08:32 Dose: 40 mg Donepezil HCl (Donepezil Hcl 10 Mg Tablet) 10 mg PO BEDTIME ON LICENSE OF [facility] Lidocaine (Lidocaine 4 % Patch Adh..Patch) 1 patch TRANSDERMA DAILY ON LICENSE OF [facility] Last Admin: 06/30/23 08:33 Dose: 1 patch Lisinopril (Lisinopril 5 Mg Tablet) 5 mg PO DAILY ON LICENSE OF [facility]; Protocol Last Admin: 06/30/23 08:32 Dose: 5 mg Magnesium Hydroxide (Milk Of Magnesia 30 Ml Oral.Susp) 30 ml PO DAILY PRN PRN Reason: Constipation Memantine (Memantine Hcl 5 Mg Tablet) 5 mg PO BID [facility] Metoprolol Succinate (Metoprolol Succinate Er 50 Mg Tab.Er.24h) 50 mg PO DAILY [facility]; Protocol Last Admin: 06/30/23 08:32 Dose: 50 mg Trazodone HCl (Trazodone Hcl 50 Mg Tablet) 50 mg PO BEDTIME MRX1 PRN PRN Reason: Insomnia Allergies Allergies Allergy/AdvReac Type Severity Reaction Status Date / Time No Known Allergies Allergy Verified 06/21/23 23:40 Assessment & Plan Assessment & Plan (1) Delirium: Status: Resolved Code(s): R41.0 - Disorientation, unspecified Assessment and Plan: resolved (2) PTSD (post-traumatic stress disorder): Status: Acute Code(s): F43.10 - Post-traumatic stress disorder, unspecified (3) Atrial fibrillation: Status: Acute Code(s): I48.91 - Unspecified atrial fibrillation (4) Hypertension: Status: Acute Code(s): I10 - Essential (primary) hypertension (5) Dementia: Status: Acute Code(s): F03.90 - Unspecified dementia, unspecified severity, without behavioral disturbance, psychotic disturbance, mood disturbance, and anxiety Plan Pt is a 78 yo male, [place] with hx of PTSD, ?Afib on Eliquis, HTN, who presents for new onset dysregulated, confused behavior and paranoid delusions. Impression/Plan -per daughters, they have noticed some mild memory issues coming up, however they both say patient has until now been able to fully take care of himself on his own without issue.? Both daughters find this past weekends incident to be startling, and completely out of the ordinary. -patient has been taking Ambien up to 15 mg at night, plus NyQuil plus hydrocodone; at this point it seems possible that patient's PTSD was exacerbated due to mind altering medication and that he is experiencing some delirium from this medication combination.? At this point it is not clear if there is an underlying cognitive decline, or if so to what degree.? Patient has no recollection of a number of events, including being found with his gun outside not wearing pants.? Patient is also expressing paranoid delusional thinking. -admitted for patient's safety, monitoring and assessing whether recent incident due to delirium or whether an organic cognitive impairment is emerging Hospital course: 06/23 no change in presentation; scrape on patient's back which he says was due to accidentally sliding up against a board; examined and no signs of infection -would consider prazosin q.h.s. if patient complains of nightmares or trouble sleeping 06/24 Patient reports that he is good and has brighter affect and seems more present during conversation. Patient said he had a good meeting with his daughter today. Patternmaker Grader discussed police report that found patient with gun and hand, where no pants; patient says he does not remember this at all but today, accepts that this may have actually happen. Patternmaker Grader discussed and suggests that his concern about a smear campaign might just be his mind playing tricks on him which he said he would consider. Discussed medication that could have been problematic, Ambien and NyQuil a which patient says he is done taking. Sleeping well. Eating well. Will continue to monitor for continued progress Staff report patient has lesion on back is healing well. 06/25 patient much more clear and organized. Seems to be accepting that though he does not remember what happened this past weekend, police and corroborating reports are accurate. Some residual paranoid thinking but not expressed an less solicited. Patient's thought process is goal oriented and linear and no tangential moments. Will continue to monitor but it is hopeful that last week's event was due to delirium caused by mind altering medications (Ambien, NyQuil and hydrocodone) which now seems to be resolving. Daughter thinks patient can go home soon 06/26 pt remains doing better; delirium seems to have resolved and pt is much clearer and more organized. However, now cleared, a baseline level of dementia seems to have emerged. -primary team to discuss med management going forward PLAN: 3 day notice retracted. Q 15 minute checks Discontinue Ambien (was intermittently taking up to 15 mg at home) Will avoid anticholinergic medications MOCA/ACL for cognitive screening Reviewed labs from sending hospital and mild LFT increase likely due to over using NyQuil Reviewed labs from setting hospital other AST elevation, lytes, BUN/creatinine, CBC. Ca all WNL; UDS negative; UA negative Persistent AFib Continue metoprolol, Eliquis HTN Continue amlodipine, lisinopril HLD Continue statin DEMENTIA Started on Aricept 5 mg p.o. q.h.s. to delay the progress of the condition. He has been increased up to 10 mg. We are starting Namenda 5 mg p.o. b.i.d. Disposition the patient will go back to his home [facility] Reason for continued inpatient stay Substantial Risk for: inability to function, rapid decompensation and med/psych decompensation Time Spent With Patient Time: Total time managing care of this patient today __20__ minutes.
[2023-06-30 18:00] VITALS: BP 112/72; PULSE 81; RESP 16; TEMP 36.3; O2SAT 95
[2023-06-30] MEDS: Donepezil HCl 10 MG TABLET PO (21:10)
[2023-07-01 08:00] VITALS: BP 109/66; PULSE 89; RESP 18; TEMP 36.2; O2SAT 97
[2023-07-01] MEDS: amLODIPine Besylate 5 MG TABLET PO (08:30)
[2023-07-01] MEDS: Apixaban 5 MG TABLET PO ×2 (08:30→19:51)
[2023-07-01] MEDS: Atorvastatin Calcium 40 MG TABLET PO (08:30)
[2023-07-01] MEDS: Memantine HCl 5 MG TABLET PO ×2 (08:31→19:52)
--- NOTE | 2023-07-01 08:42 | P.PNPSI_ITS ---
Subjective Subjective Date of Service: 07/01/23 Reason For Visit: F43.10 Post traumatic STress Disorder Interim History: Pt was seen and discussed with the team. Plan of care was reviewed. Pt is visable in milieu, ambulatory, cooperative, taking medications, eating and sleeping adequately. Affect with some anxiety and hyperactive startle (mild). He is attentive to environment around him and anxious to be approached by someone new. Team reports no dangerous behaviors. No changes were made today to the regime or plan of care Medication Compliance: Yes Side effects from medications: No Attending Groups: Yes Review of Systems Acute medical concerns: No Medical Review of Systems: unchanged Mental Status Exam Mental Status Exam Patient Appearance: Well Grooomed and Appropriate Patient Orientation: Person and Situation Level of Consciousness: Awake and Appropriate Patient Behavior: Guarded and Passive Mood Description: Calm Affect Description: Constricted Patient Cognition Impaired: Yes Ability to Follow Directions: Good Speech Pattern: Clear Hallucinations: None Delusions: Not Present Thought Process: Distracted, Slowed Thinking and Word Salad Thought Content: positive for [place] and positive for Circumstantial Judgement: Fair Diagnostics Vital Signs (24Hr): Vital Signs - 24 hr 06/30/23 18:00 Temperature 97.4 F Pulse Rate 81 Respiratory Rate 16 Blood Pressure 112/72 Pulse Oximetry 95 Oxygen Delivery Method Room Air BMI result Body Mass Index 24.5 Labs 06/22/23 07:56 Medications Medications Current Medications Acetaminophen (Acetaminophen 325 Mg Tablet) 650 mg PO Q6H PRN PRN Reason: Headache/Pain Mild Scale (1-3) Al Hydroxide/Mg Hydroxide (Magnesium Hydrox/Alum Hydrox 30 Ml Oral.Susp) 30 ml PO Q6H PRN PRN Reason: Heartburn/Nausea Amlodipine Besylate (Amlodipine Besylate 5 Mg Tablet) 5 mg PO DAILY [facility]; Protocol Last Admin: 07/01/23 08:30 Dose: 5 mg Apixaban (Apixaban 5 Mg Tablet) 5 mg PO BID [facility] Last Admin: 07/01/23 08:30 Dose: 5 mg Atorvastatin Calcium (Atorvastatin Calcium 40 Mg Tablet) 40 mg PO DAILY [facility] Last Admin: 07/01/23 08:30 Dose: 40 mg Donepezil HCl (Donepezil Hcl 10 Mg Tablet) 10 mg PO BEDTIME [facility] Last Admin: 06/30/23 21:10 Dose: 10 mg Lidocaine (Lidocaine 4 % Patch Adh..Patch) 1 patch TRANSDERMA DAILY [facility] Last Admin: 06/30/23 08:33 Dose: 1 patch Lisinopril (Lisinopril 5 Mg Tablet) 5 mg PO DAILY [facility]; Protocol Last Admin: 06/30/23 08:32 Dose: 5 mg Magnesium Hydroxide (Milk Of Magnesia 30 Ml Oral.Susp) 30 ml PO DAILY PRN PRN Reason: Constipation Memantine (Memantine Hcl 5 Mg Tablet) 5 mg PO BID [facility] Last Admin: 07/01/23 08:31 Dose: 5 mg Metoprolol Succinate (Metoprolol Succinate Er 50 Mg Tab.Er.24h) 50 mg PO DAILY [facility]; Protocol Last Admin: 06/30/23 08:32 Dose: 50 mg Trazodone HCl (Trazodone Hcl 50 Mg Tablet) 50 mg PO BEDTIME MRX1 PRN PRN Reason: Insomnia Allergies Allergies Allergy/AdvReac Type Severity Reaction Status Date / Time No Known Allergies Allergy Verified 06/21/23 23:40 Assessment & Plan Assessment & Plan (1) Delirium: Status: Resolved Code(s): R41.0 - Disorientation, unspecified Assessment and Plan: resolved (2) PTSD (post-traumatic stress disorder): Status: Acute Code(s): F43.10 - Post-traumatic stress disorder, unspecified (3) Atrial fibrillation: Status: Acute Code(s): I48.91 - Unspecified atrial fibrillation (4) Hypertension: Status: Acute Code(s): I10 - Essential (primary) hypertension (5) Dementia: Status: Acute Code(s): F03.90 - Unspecified dementia, unspecified severity, without behavioral disturbance, psychotic disturbance, mood disturbance, and anxiety Plan Pt is a 78 yo male, [place] with hx of PTSD, ?Afib on Eliquis, HTN, who presents for new onset dysregulated, confused behavior and paranoid delusions. Impression/Plan -per daughters, they have noticed some mild memory issues coming up, however they both say patient has until now been able to fully take care of himself on his own without issue.? Both daughters find this past weekends incident to be startling, and completely out of the ordinary. -patient has been taking Ambien up to 15 mg at night, plus NyQuil plus hydrocodone; at this point it seems possible that patient's PTSD was exacerbated due to mind altering medication and that he is experiencing some delirium from this medication combination.? At this point it is not clear if there is an underlying cognitive decline, or if so to what degree.? Patient has no recollection of a number of events, including being found with his gun outside not wearing pants.? Patient is also expressing paranoid delusional thinking. -admitted for patient's safety, monitoring and assessing whether recent incident due to delirium or whether an organic cognitive impairment is emerging Hospital course: 06/23 no change in presentation; scrape on patient's back which he says was due to accidentally sliding up against a board; examined and no signs of infection -would consider prazosin q.h.s. if patient complains of nightmares or trouble sleeping 06/24 Patient reports that he is good and has brighter affect and seems more present during conversation. Patient said he had a good meeting with his daughter today. Tram Operator discussed police report that found patient with gun and hand, where no pants; patient says he does not remember this at all but today, accepts that this may have actually happen. Tram Operator discussed and suggests that his concern about a smear campaign might just be his mind playing tricks on him which he said he would consider. Discussed medication that could have been problematic, Ambien and NyQuil a which patient says he is done taking. Sleeping well. Eating well. Will continue to monitor for continued progress Staff report patient has lesion on back is healing well. 06/25 patient much more clear and organized. Seems to be accepting that though he does not remember what happened this past weekend, police and corroborating reports are accurate. Some residual paranoid thinking but not expressed an less solicited. Patient's thought process is goal oriented and linear and no tangential moments. Will continue to monitor but it is hopeful that last week's event was due to delirium caused by mind altering medications (Ambien, NyQuil and hydrocodone) which now seems to be resolving. Daughter thinks patient can go home soon 06/26 pt remains doing better; delirium seems to have resolved and pt is much clearer and more organized. However, now cleared, a baseline level of dementia seems to have emerged. -primary team to discuss med management going forward PLAN: 3 day notice retracted. Q 15 minute checks Discontinue Ambien (was intermittently taking up to 15 mg at home) Will avoid anticholinergic medications MOCA/ACL for cognitive screening Reviewed labs from sending hospital and mild LFT increase likely due to over using NyQuil Reviewed labs from setting hospital other AST elevation, lytes, BUN/creatinine, CBC. Ca all WNL; UDS negative; UA negative Persistent AFib Continue metoprolol, Eliquis HTN Continue amlodipine, lisinopril HLD Continue statin DEMENTIA Started on Aricept 5 mg p.o. q.h.s. to delay the progress of the condition. He has been increased up to 10 mg. We are starting Namenda 5 mg p.o. b.i.d. Disposition the patient will go back to his home with ancillary services provided by the [facility] Informed Consent: further education needed Reason for continued inpatient stay Substantial Risk for: rapid decompensation Time Spent With Patient Time: Total time managing care of this patient today ____ minutes.
[2023-07-01 09:45] VITALS: BP 121/67; PULSE 82
[2023-07-01] MEDS: lisinopriL 5 MG TABLET PO (09:51)
[2023-07-01] MEDS: Metoprolol Succinate ER 50 MG TAB.ER.24H PO (09:51)
[2023-07-01 18:00] VITALS: BP 109/59; PULSE 69; RESP 19; TEMP 36.3; O2SAT 97
[2023-07-01] MEDS: Donepezil HCl 10 MG TABLET PO (19:52)
--- NOTE | 2023-07-02 05:39 | P.PNPSI_ITS ---
Subjective Subjective Date of Service: 07/02/23 Reason For Visit: F43.10 Post traumatic STress Disorder Interim History: Pt seen, discussed with team. Plan of care reviewed. Discharge planned for 07/03/23. In the milieu, on the terrace, isolative, appears at times to be lost in thoughts. Reports he is well. Attentive to milieu stimuli and activity. Medication Compliance: Yes Side effects from medications: No Attending Groups: Intermittent Review of Systems Acute medical concerns: No Medical Review of Systems: unchanged Mental Status Exam Mental Status Exam Patient Appearance: Well Grooomed and Appropriate Patient Orientation: Person and Situation Level of Consciousness: Awake and Appropriate Patient Behavior: Guarded and Passive Mood Description: Calm Affect Description: Constricted Patient Cognition Impaired: Yes Ability to Follow Directions: Good Speech Pattern: Clear Hallucinations: None Delusions: Not Present Thought Process: Distracted and Slowed Thinking Thought Content: positive for [place] and positive for Circumstantial Judgement: Fair Diagnostics Vital Signs (24Hr): Vital Signs - 24 hr 07/01/23 08:00 07/01/23 09:45 07/01/23 18:00 Temperature 97.2 F 97.3 F Pulse Rate 89 82 69 Respiratory Rate 18 19 Blood Pressure 109/66 121/67 109/59 L Pulse Oximetry 97 97 Oxygen Delivery Method Room Air Room Air BMI result Body Mass Index 24.5 Labs 06/22/23 07:56 Medications Medications Current Medications Acetaminophen (Acetaminophen 325 Mg Tablet) 650 mg PO Q6H PRN PRN Reason: Headache/Pain Mild Scale (1-3) Al Hydroxide/Mg Hydroxide (Magnesium Hydrox/Alum Hydrox 30 Ml Oral.Susp) 30 ml PO Q6H PRN PRN Reason: Heartburn/Nausea Amlodipine Besylate (Amlodipine Besylate 5 Mg Tablet) 5 mg PO DAILY [facility]; Protocol Last Admin: 07/01/23 08:30 Dose: 5 mg Apixaban (Apixaban 5 Mg Tablet) 5 mg PO BID [facility] Last Admin: 07/01/23 19:51 Dose: 5 mg Atorvastatin Calcium (Atorvastatin Calcium 40 Mg Tablet) 40 mg PO DAILY [facility] Last Admin: 07/01/23 08:30 Dose: 40 mg Donepezil HCl (Donepezil Hcl 10 Mg Tablet) 10 mg PO BEDTIME [facility] Last Admin: 07/01/23 19:52 Dose: 10 mg Lidocaine (Lidocaine 4 % Patch Adh..Patch) 1 patch TRANSDERMA DAILY [facility] Last Admin: 07/01/23 10:09 Dose: Not Given Lisinopril (Lisinopril 5 Mg Tablet) 5 mg PO DAILY [facility]; Protocol Last Admin: 07/01/23 09:51 Dose: 5 mg Magnesium Hydroxide (Milk Of Magnesia 30 Ml Oral.Susp) 30 ml PO DAILY PRN PRN Reason: Constipation Memantine (Memantine Hcl 5 Mg Tablet) 5 mg PO BID [facility] Last Admin: 07/01/23 19:52 Dose: 5 mg Metoprolol Succinate (Metoprolol Succinate Er 50 Mg Tab.Er.24h) 50 mg PO DAILY [facility]; Protocol Last Admin: 07/01/23 09:51 Dose: 50 mg Trazodone HCl (Trazodone Hcl 50 Mg Tablet) 50 mg PO BEDTIME MRX1 PRN PRN Reason: Insomnia Allergies Allergies Allergy/AdvReac Type Severity Reaction Status Date / Time No Known Allergies Allergy Verified 06/21/23 23:40 Assessment & Plan Assessment & Plan (1) Delirium: Status: Resolved Code(s): R41.0 - Disorientation, unspecified Assessment and Plan: resolved (2) PTSD (post-traumatic stress disorder): Status: Acute Code(s): F43.10 - Post-traumatic stress disorder, unspecified (3) Atrial fibrillation: Status: Acute Code(s): I48.91 - Unspecified atrial fibrillation (4) Hypertension: Status: Acute Code(s): I10 - Essential (primary) hypertension (5) Dementia: Status: Acute Code(s): F03.90 - Unspecified dementia, unspecified severity, without behavioral disturbance, psychotic disturbance, mood disturbance, and anxiety Plan Pt is a 78 yo male, [place] with hx of PTSD, ?Afib on Eliquis, HTN, who presents for new onset dysregulated, confused behavior and paranoid delusions. Impression/Plan -per daughters, they have noticed some mild memory issues coming up, however they both say patient has until now been able to fully take care of himself on his own without issue.? Both daughters find this past weekends incident to be startling, and completely out of the ordinary. -patient has been taking Ambien up to 15 mg at night, plus NyQuil plus hydrocodone; at this point it seems possible that patient's PTSD was exacerbated due to mind altering medication and that he is experiencing some delirium from this medication combination.? At this point it is not clear if there is an underlying cognitive decline, or if so to what degree.? Patient has no recollection of a number of events, including being found with his gun outside not wearing pants.? Patient is also expressing paranoid delusional thinking. -admitted for patient's safety, monitoring and assessing whether recent incident due to delirium or whether an organic cognitive impairment is emerging Hospital course: 06/23 no change in presentation; scrape on patient's back which he says was due to accidentally sliding up against a board; examined and no signs of infection -would consider prazosin q.h.s. if patient complains of nightmares or trouble sleeping 06/24 Patient reports that he is good and has brighter affect and seems more present during conversation. Patient said he had a good meeting with his daughter today. Account Officer discussed police report that found patient with gun and hand, where no pants; patient says he does not remember this at all but today, accepts that this may have actually happen. Account Officer discussed and suggests that his concern about a smear campaign might just be his mind playing tricks on him which he said he would consider. Discussed medication that could have been problematic, Ambien and NyQuil a which patient says he is done taking. Sleeping well. Eating well. Will continue to monitor for continued progress Staff report patient has lesion on back is healing well. 06/25 patient much more clear and organized. Seems to be accepting that though he does not remember what happened this past weekend, police and corroborating reports are accurate. Some residual paranoid thinking but not expressed an less solicited. Patient's thought process is goal oriented and linear and no tangential moments. Will continue to monitor but it is hopeful that last week's event was due to delirium caused by mind altering medications (Ambien, NyQuil and hydrocodone) which now seems to be resolving. Daughter thinks patient can go home soon 06/26 pt remains doing better; delirium seems to have resolved and pt is much clearer and more organized. However, now cleared, a baseline level of dementia seems to have emerged. -primary team to discuss med management going forward 07/02- Discharge planned for 07/03/23. PLAN: 3 day notice retracted. Q 15 minute checks Discontinue Ambien (was intermittently taking up to 15 mg at home) Will avoid anticholinergic medications MOCA/ACL for cognitive screening Reviewed labs from sending hospital and mild LFT increase likely due to over using NyQuil Reviewed labs from setting hospital other AST elevation, lytes, BUN/creatinine, CBC. Ca all WNL; UDS negative; UA negative Persistent AFib Continue metoprolol, Eliquis HTN Continue amlodipine, lisinopril HLD Continue statin DEMENTIA Started on Aricept 5 mg p.o. q.h.s. to delay the progress of the condition. He has been increased up to 10 mg. We are starting Namenda 5 mg p.o. b.i.d. Disposition the patient will go back to his home [facility] Reason for continued inpatient stay Substantial Risk for: stable for discharge Time Spent With Patient Time: Total time managing care of this patient today ____ minutes.
[2023-07-02 07:45] VITALS: BP 133/73; PULSE 98; RESP 18; TEMP 36.8; O2SAT 98
[2023-07-02] MEDS: amLODIPine Besylate 5 MG TABLET PO (08:00)
[2023-07-02] MEDS: Memantine HCl 5 MG TABLET PO ×2 (08:00→20:47)
[2023-07-02] MEDS: Metoprolol Succinate ER 50 MG TAB.ER.24H PO (08:00)
[2023-07-02] MEDS: Atorvastatin Calcium 40 MG TABLET PO (08:00)
[2023-07-02] MEDS: lisinopriL 5 MG TABLET PO (08:00)
[2023-07-02] MEDS: Lidocaine 4 % Patch ADH..PATCH 1 PATCH TRANSDERMA (08:00)
[2023-07-02] MEDS: Apixaban 5 MG TABLET PO ×2 (08:00→20:47)
[2023-07-02 19:48] VITALS: BP 118/68; PULSE 73; TEMP 36.2; O2SAT 99
[2023-07-02] MEDS: Donepezil HCl 10 MG TABLET PO (20:47)
[2023-07-02] MEDS: traZODone HCL 50 MG TABLET PO (20:47)
[2023-07-03 07:50] VITALS: BP 90/58; PULSE 82; RESP 18; TEMP 36; O2SAT 100
[2023-07-03] MEDS: Memantine HCl 5 MG TABLET PO ×2 (08:28→14:18)
[2023-07-03] MEDS: Apixaban 5 MG TABLET PO (08:28)
[2023-07-03] MEDS: Atorvastatin Calcium 40 MG TABLET PO (08:28)
[2023-07-03] MEDS: Lidocaine 4 % Patch ADH..PATCH 1 PATCH TRANSDERMA (08:45)
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
[2023-07-03] MEDS: Donepezil HCl 10 MG TABLET PO (14:18)
--- NOTE | 2023-07-03 14:18 | PC.NURSE ---
Per MD request Namenda and Aricept due at 2100 today given now prior to discharge as patient will not have medications available until tomorrow.
== END 2023-07-03 16:50 | disposition home or self-care (01) | DRG 882 ==
PROVIDERS: Psychiatry & Neurology Psychiatry; Admitting Provider Psychiatry & Neurology Psychiatry; Visit Provider Psychiatry & Neurology Psychiatry
DX: F43.10 Post-traumatic stress disorder, unspecified (principal); F05 Delirium due to known physiological condition; I48.19 Other persistent atrial fibrillation; E78.5 Hyperlipidemia, unspecified; I10 Essential (primary) hypertension; F03.90 Unspecified dementia, unspecified severity, without behavioral disturbance, psychotic disturbance, mood disturbance, and anxiety; Z79.01 Long term (current) use of anticoagulants; Z79.899 Other long term (current) drug therapy
CPT/HCPCS: 36415; 80053; 80061; 82607; 82746; 83036; 84443; 97161

== ENCOUNTER → 2023-06-21 19:35 | Outpatient (BNV) | payer MEDICARE, SELFPAY | PROVIDERS: Admitting Provider Psychiatry & Neurology Psychiatry; Visit Provider Psychiatry & Neurology Psychiatry | DX: F03.90 Unspecified dementia, unspecified severity, without behavioral disturbance, psychotic disturbance, mood disturbance, and anxiety (principal); F43.10 Post-traumatic stress disorder, unspecified; R41.0 Disorientation, unspecified; I48.91 Unspecified atrial fibrillation; I10 Essential (primary) hypertension | CPT/HCPCS: 90792; 99231; 99232; 99238 ==

== ENCOUNTER → 2023-06-21 19:35 | Outpatient (BNV) | payer MEDICARE, SELFPAY | PROVIDERS: Admitting Provider Psychiatry & Neurology Psychiatry; Visit Provider Student in an Organized Health Care Education/Training Program | DX: I48.11 Longstanding persistent atrial fibrillation (principal) | CPT/HCPCS: 99222 ==